=== PATIENT | male | born 1980 | race Hispanic/Latino ===

== ENCOUNTER 2024-12-04 17:31 | Emergency (ER) | payer SELFPAY ==
[2024-12-04 17:31] VITALS: BMI 25.7
[2024-12-04 17:41] VITALS: BP 122/79
[2024-12-04 18:00] LABS: Hematocrit 42.8 % (39.0-52.0); Hemoglobin 15.0 g/dL (13.0-18.0); Mean Corp Hgb Conc. 35.0 g/dL (33.0-37.0); Mean Corpuscular Volume 88.4 fL (80.0-94.0); Nucleated Red Blood Cells % 0 % (-); Platelet Count 220 10^3/uL (130-400); Red Cell Dist. Width 12.5 % (11.5-14.5)
[2024-12-04 18:15] LABS: ALT (SGPT) 25 U/L (0-50); AST (SGOT) 28 U/L (17-59); Albumin 5.0 g/dl (3.5-5.0); Alkaline Phosphatase 70 U/L (38-126); Blood Urea Nitrogen 16 mg/dl (9-20); Calcium 9.2 mg/dl (8.4-10.2); Carbon Dioxide 25 mmol/L (22-30); Chloride 107 mmol/L (98-107); Glucose 97 mg/dl (70-99); Potassium 4.0 mmol/L (3.5-5.1); Sodium 138 mmol/L (135-145); Total Protein 8.1 g/dl (6.3-8.2); eGFR > 60.00
--- NOTE | 2024-12-04 19:22 | ED.GENMED ---
History of Present Illness
General
Chief Complaint: Skin Surface Trauma
Time Seen by Provider: 12/04/24 19:22
History of Present Illness
History of Present Illness:
TIME OF INITIAL EVALUATION
- 7:30 PM
REVIEW OF OLD RECORDS
- No significant past medical history. I looked at her old records in [place] however there were no significant old records available for review. Friend at bedside translating Croatian without any difficulty.
CHIEF COMPLAINT(S)
Laceration on the hand with swelling.
HISTORY OF PRESENT ILLNESS
The patient is a 44-year-old male who sustained a laceration on his hand last night at work while handling a trash bag containing a broken dish. 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 The wound has since exhibited notable swelling,
prompting concern for potential infection. Although he reports minimal pain, there is a concern due to the degree of swelling. He did not seek immediate medical attention post-injury and was referred by his workplace to seek evaluation today. The
patient denies fever and reports having cleaned the wound with soap and water.
PHYSICAL EXAM
GENERAL: Well appearing in no distress
HEENT: Moist oral mucosa
NEUROLOGIC: Excellent strength all extremities, no obvious coordination deficits
PSYCHIATRIC: Appropriate mental status, normal insight and judgement
EXTREMITIES: There is a 3 cm laceration at the base of the right thumb that is approximately 1 cm deep, there is some mild overlying edema but no purulence, no erythema, no warmth but there is some mild diffuse tenderness, there is decreased active
range of motion due to pain
SKIN: No rash, no lesions
PROBLEM LIST
- Acute laceration of the hand with swelling
- Risk of infection
PLAN
- Irrigate the laceration thoroughly.
- Apply a dressing with antibiotic ointment to the wound.
- Initiate antibiotic therapy with Keflex (cephalexin) with the first dose administered in the facility and a prescription sent to the patients preferred pharmacy, [facility] in [place].
- Counseling on not suturing the wound due to the time elapsed since the injury, recommending a more conservative management approach to allow any potential infection to resolve.
DIFFERENTIAL DIAGNOSIS
The Differential Diagnosis includes, in no particular order and is not limited to:
1. Laceration with local inflammation
2. Early cellulitis
3. Traumatic hand edema
4. Phlegmon formation
5. Subcutaneous abscess
6. Bacterial skin infection
7. Foreign body reaction
8. Hematoma
9. Allergic reaction to foreign material
10. Deep tissue infection
RADIOLOGY
- No clear indication for imaging
EKG
- Not indicated
LABS
- White count is normal, hemoglobin normal, chemistries unremarkable
UPDATE
-SUMMARY OF ENCOUNTER
The 44-year-old male patient presented to the emergency department with a laceration on his hand sustained at work while handling a trash bag with a broken dish. The laceration occurred last night, and since then has developed noticeable swelling.
The patient is concerned about potential infection, although he describes the pain as minimal. He did not seek immediate medical attention and was referred by his workplace to come today. On examination, there is significant swelling but no overt
signs of acute infection like pus or erythema. The patients tetanus status is not up to date, which will be addressed. The decision was made not to suture the wound due to the time elapsed, to avoid potential infection. The plan includes thorough
irrigation of the wound, application of topical antibiotics, starting oral antibiotic therapy (cephalexin), and addressing the patients tetanus status.
DISPOSITION
Discharge
ASSESSMENT
The patients laceration with notable swelling suggests possible traumatic edema rather than an acute infection. Risk of bacterial infection remains due to the mechanism and context of injury.
EMERGENCY TREATMENTS ADMINISTERED
- Administration of tetanus toxoid.
PLAN
- Irrigate the laceration thoroughly.
- Apply a dressing with antibiotic ointment to the wound.
- Initiate antibiotic therapy with cephalexin.
- Administer tetanus toxoid.
- Advise against suturing due to time elapsed since the injury to prevent infection.
PATIENT EDUCATION AND COUNSELING
The patient was counseled on keeping the wound clean and dry, monitoring for signs of infection such as increased redness, warmth, drainage, or fever, and taking the full course of antibiotics as prescribed. The importance of not suturing the wound
at this stage was emphasized for better infection control.
FOLLOW-UP INSTRUCTIONS
Please call the office immediately to schedule a follow-up visit in the next few days to monitor the wound healing and check for any infection.
MEDICATION RECONCILIATION
- Cephalexin was initiated with the first dose administered in the facility, and a prescription was sent to the patients preferred pharmacy, [facility] in [place].
MEDICAL DECISION MAKING
-Complexity of Data Reviewed: Chronic conditions affecting care include the patients recent laceration and risk of infection. Differential diagnosis includes laceration with local inflammation, early cellulitis, traumatic hand edema, among others.
-Data:
Category 1:
- No additional lab tests were ordered.
Category 3:
- Management decisions were made in coordination with established emergency protocols.
-Risk:
Prescription medication was prescribed, including starting antibiotic therapy with cephalexin.
DIAGNOSIS
- Laceration of hand with swelling, initial encounter (S61.419A)
- Risk of infection due to laceration (T79.8XXA)
Phy Exam
Physical Exam
Physical Exam:
See HPI
Course
Orders/Labs/Results
Orders:
Orders
12/04/24 17:54
CMP [Comprehensive Metabolic Panel] Urgent
Complete Blood Count/With Diff Urgent
12/04/24 19:32
Cephalexin Monohydrate [Keflex] 500 mg PO NOW STA
Tetanus/Diphth/Acelpertussis [Adacel] 0.5 ml IM .ONCE ONE
Abnormal Lab Results
12/04/24
17:54
Total Bilirubin 1.8 H mg/dl
(0.2-1.3)
12/04/24 17:54
12/04/24 17:54
Vital Signs
Initial and Last Documented VS:
Initial Vital Signs
Temp Pulse Resp BP Pulse Ox
36.9 C 62 16 122/79 97
12/04/24 17:41 12/04/24 17:41 12/04/24 17:41 12/04/24 17:41 12/04/24 17:41
Last Documented Vital Signs
Temp Pulse Resp BP Pulse Ox
36.9 C 68 16 118/74 99
12/04/24 17:41 12/04/24 19:28 12/04/24 19:28 12/04/24 19:28 12/04/24 19:28
*Pulse Oximetry
SaO2: 97
Oxygen Mode of Delivery: Room air
Patient hypoxic: no
*Critical Care Note
Total Time (30-74mins, 75-104mins- exclusive of procedures): Not Applicable
ED Attending Note
-
Portions of this chart may have been created with voice recognition software.� Occasional wrong word or��sound alike� substitutions may have occurred due to the inherent limitations of voice recognition software.
Discharge Plan
Departure
Patient Disposition: Home (Routine Discharge)
Date of Disposition: 12/04/24
Time of Disposition: 19:32
Patient with high blood pressure during this ER visit?: Yes
Discharge Problem:
Soft tissue injury of hand
Instructions: Wound Care (DC), BLOOD PRESSURE
Prescriptions:
New
cephalexin 500 mg tablet
500 mg PO TID Qty: 21 0RF
Activity Restrictions/Additional Instructions:
Try to keep the hand elevated above the level of your heart to help decrease swelling. If we were to suture the wound, this could increase the risk of more serious infection. Currently your white blood cell count is normal. Return here if worse
or other concerns. Next dose of antibiotics tomorrow morning.
Interventions
Interventions:
*Risk Screen - Suicide Last Done: 12/04/24 17:41
*General Assessment Last Done: 12/04/24 17:41
*Neglect/Abuse Screening Last Done: 12/04/24 18:50
*ED- Fall Risk Assessment Last Done: 12/04/24 18:50
*ED COVID-19 Vaccine History Last Done: 12/04/24 17:41
ED-Skin Assessment Last Done: 12/04/24 18:50
Discharge Date and Time
Print Language: OMANI
[2024-12-04 19:28] VITALS: BP 118/74
[2024-12-04] MEDS: ADACEL 0.5 ML IM (19:33)
[2024-12-04] MEDS: KEFLEX 500 MG PO (19:36)
== END 2024-12-04 19:39 | disposition home or self-care (01) ==
LOC: EMR 17:31
PROVIDERS: Emergency Medicine; EMERGENCY PHYSICIAN Emergency Medicine
DX: S69.91XA Unspecified injury of right wrist, hand and finger(s), initial encounter (principal); X58.XXXA Exposure to other specified factors, initial encounter; Z23 Encounter for immunization
CPT/HCPCS: 99283; 90471; 80053; 85025; 90715